=== PATIENT | male | born 1960 | race Caucasian/White ===

== ENCOUNTER → 2018-09-18 | Outpatient (CLI) | payer BC ==
[~2018-09-18] MED LIST: ANDROGEL1% TP; ASPIRIN 32325 MG/TAB PO; BENICAR 20MG TA20 MG PO; COREG CR40 MG PO; FLONASE0.05 MG/AC NS; METFORMIN500 MG PO; SIMCOR 500 MG-21 TER PO
== END ==
LOC: COL.VAS 12:05
DX: I48.2 Chronic atrial fibrillation (principal); E78.2 Mixed hyperlipidemia; I51.7 Cardiomegaly; Z79.01 Long term (current) use of anticoagulants

== ENCOUNTER → 2019-01-18 | Outpatient (CLI) | payer BC | LOC: COL.RAD 12:44 | DX: M43.06 Spondylolysis, lumbar region (principal); R31.0 Gross hematuria | CPT/HCPCS: Q9967 ==

== ENCOUNTER → 2019-03-24 | Outpatient (CLI) | payer BC | LOC: COL.RAD 13:24 | DX: S73.191A Other sprain of right hip, initial encounter (principal) | CPT/HCPCS: A9585; Q9967 ==

== ENCOUNTER 2021-04-10 07:57 | Day surgery (SDC) | payer BC ==
[~2021-04-10] VITALS: Ht 188 cm; Wt 113.9 kg
[2021-04-10] MEDS ORDERED: CARTIA XT240 MG PO (08:46)
[2021-04-10] MEDS ORDERED: BYSTOLIC10 MG PO (08:46)
[2021-04-10] MEDS ORDERED: JARDIANCE10 PO (08:46)
[2021-04-10] MEDS ORDERED: PROAIR HFA0.09 MG/AC IH (08:47)
[2021-04-10] MEDS ORDERED: FLOVENT 220MCG7.9 GM IH (08:48)
[2021-04-10] MEDS ORDERED: TAMBOCOR150 MG PO (08:49)
[2021-04-10] MEDS ORDERED: XARELTO20 MG PO (08:49)
[2021-04-10] MEDS ORDERED: QVAR REDIHALE10.6 GM IH (08:49)
[2021-04-10] MEDS ORDERED: ZETIA 10MG TAB10 MG PO (08:50)
[2021-04-10] MEDS ORDERED: CRESTOR40 MG PO (08:50)
[2021-04-10] MEDS ORDERED: MICARDIS40 MG PO (08:50)
[2021-04-10] MEDS ORDERED: THE MEDICINE S200 M2 PO (08:51)
[2021-04-10 08:53] VITALS: BP 132/88; PULSE 70; TEMP 97.6
[2021-04-10] MEDS ORDERED: XYOSTED100 MG/0.5 SQ (08:53)
[2021-04-10 09:45] VITALS: BP 102/72; PULSE 71
--- NOTE | 2021-04-10 09:45 | NUR ---
PATIENT BROUGHT BACK TO [facility] VIA CART. AMBULATED TO CHAIR WITHOUT DIFFICULT. PLACED ON MONITORS, VITAL SIGNS STABLE. AT BEDSIDE TO DRIVE PATIENT HOME. REPORT REICEVED FROM IRINA PRAKASH, ALL QUESTIONS ANSWERED. DENIES PAIN OR NAUSEA. WOULD LIKE SPRITE AND PUDDING. WARM BLANKET PROVIDED, CALL BOSS WITHIN REACH. WILL CONTINUE TO MONITOR.
[2021-04-10 10:00] VITALS: BP 115/74; PULSE 65
--- NOTE | 2021-04-10 10:00 | NUR ---
PATIENT TOLERATING FOOD AND DRINK WITHOUT DIFFICULTY. STATES HE FEELS WELL. VITAL SIGNS STABLE.
[2021-04-10 10:15] VITALS: BP 110/67; PULSE 69
--- NOTE | 2021-04-10 10:15 | NUR ---
DR. FALLON AT BEDSIDE TO DISCUSS RESULTS OF PROCEDURE. PATIENT STATES HE FEELS READY TO GO HOME AT THIS TIME. IV REMOVED. PATIENT TO GET DRESSED.
--- NOTE | 2021-04-10 10:40 | NUR ---
DISCHARGE INSTRUCTIONS REVIEWED WITH PATIENT AND . ALL QUESTIONS ANSWERED. PATIENT BROUGHT DOWN STAIRS VIA WHEEL CHAIR. TO DRIVE PATIENT HOME. ALL BELONGINGS IN HAND.
== END 2021-04-10 10:40 | disposition home or self-care (01) ==
LOC: SDCO 07:57
DX: Z12.11 Encounter for screening for malignant neoplasm of colon (principal); D12.3 Benign neoplasm of transverse colon; K64.0 First degree hemorrhoids; E11.9 Type 2 diabetes mellitus without complications; E78.5 Hyperlipidemia, unspecified; I10 Essential (primary) hypertension; J45.909 Unspecified asthma, uncomplicated; Z20.822 Contact with and (suspected) exposure to COVID-19; G47.33 Obstructive sleep apnea (adult) (pediatric); I48.91 Unspecified atrial fibrillation; M19.90 Unspecified osteoarthritis, unspecified site; Z79.01 Long term (current) use of anticoagulants; Z79.84 Long term (current) use of oral hypoglycemic drugs; Z79.82 Long term (current) use of aspirin; Z79.899 Other long term (current) drug therapy; Z79.51 Long term (current) use of inhaled steroids
CPT/HCPCS: J2704

== ENCOUNTER 2024-03-04 09:45 | Emergency (ER) | payer BC ==
[~2024-03-04] VITALS: Ht 188 cm; Wt 115.9 kg
[~2024-03-04 09:45] MED LIST changes: +BYSTOLIC10 MG PO; +CARTIA XT240 MG PO; +CRESTOR40 MG PO; +FLOVENT 220MCG7.9 GM IH; +JARDIANCE10 PO; +MICARDIS40 MG PO; +PROAIR HFA0.09 MG/AC IH; +QVAR REDIHALE10.6 GM IH; +TAMBOCOR150 MG PO; +THE MEDICINE S200 M2 PO; +XARELTO20 MG PO; +XYOSTED100 MG/0.5 SQ; +ZETIA 10MG TAB10 MG PO
[2024-03-04 09:46] VITALS: TEMP 98
[2024-03-04] MEDS ORDERED: Cyclobenzaprine 10 MG TAB PO ONE (10:00)
[2024-03-04] MEDS ORDERED: dexAMETHasone 10 MG/ML VIAL IM ONE (10:00)
[2024-03-04] MEDS ORDERED: MEDROL 4MG DOSPA4 MG PO (10:49)
[2024-03-04] MEDS ORDERED: PERCOCET 325 MG1 TA2 PO (10:50)
[2024-03-04] MEDS ORDERED: NORFLEX 10100 MG/TAB PO (10:50)
[2024-03-04] MEDS ORDERED: Morphine 10 MG/ML VIAL IM ONE (11:00)
[2024-03-04] MEDS ORDERED: Morphine 4 MG/ML VIAL IV ONE (11:30)
[2024-03-04 11:41] VITALS: BP 137/92; PULSE 68
== END 2024-03-04 11:53 | disposition home or self-care (01) ==
LOC: COL.ER 09:45
DX: M54.16 Radiculopathy, lumbar region (principal); I48.91 Unspecified atrial fibrillation; Z79.01 Long term (current) use of anticoagulants
CPT/HCPCS: J1100; J2270